=== PATIENT | female | born 1985 | race Hispanic/Latino ===

== ENCOUNTER 2019-05-11 21:06 | Emergency (ER) | payer OTHER ==
[2019-05-11 21:33] LABS: BASOPHILS % (AUTO) 1.3 % (0.0-5.0); EOSINOPHILS % (AUTO) 1.6 % (0.0-8.0); HEMATOCRIT 38.2 % (36-48); LYMPHOCYTES % (AUTO) 29.5 % (21.0-51.0); MEAN CORPUSCULAR HEMOGLOBIN 29.3 pg (27.0-33.0); MEAN CORPUSCULAR HGB CONC 33.7 g/dL (32.0-36.0); MEAN CORPUSCULAR VOLUME 86.8 fL (79-99); MONOCYTES % (AUTO) 5.8 % (3.0-13.0); NEUTROPHILS % (AUTO) 61.8 % (40.0-77.0); PLATELET COUNT (AUTO) 281 K/uL (130-400); RED CELL DISTRIBUTION WIDTH 13.5 % (11.0-15.5); WHITE BLOOD COUNT (AUTO) 9.8 K/uL (4.8-10.8)
[2019-05-11 21:35] LABS: APPEARANCE,URINE CLOUDY (CLEAR); BILIRUBIN,URINE NEGATIVE (NEGATIVE); COLOR,URINE YELLOW (YELLOW); GLUCOSE, URINE (UA) NEGATIVE (NEGATIVE); KETONES,URINE NEGATIVE (NEGATIVE); LEUKOCYTE ESTERASE ,URINE NEGATIVE (NEGATIVE); NITRATE,URINE NEGATIVE (NEGATIVE); OCCULT BLOOD,URINE NEGATIVE (NEGATIVE); PH,URINE 5.5 (5.0-8.0); PROTEIN,URINE NEGATIVE (NEGATIVE); UROBILINOGEN,URINE 0.2 mg/dL (0.2-1.0)
[2019-05-11] MEDS ORDERED: ONDANSETRON HCL 4 MG/2 ML VIAL ONE (21:39)
[2019-05-11 21:40] LABS: HCG,QUAL RESULT NEGATIVE (NEGATIVE)
[2019-05-11] MEDS ORDERED: FAMOTIDINE/PF 20 MG/2 ML VIAL IV ONE (21:40)
[2019-05-11] MEDS ORDERED: MORPHINE SULFATE 4 MG/1ML SYG ONE ×2 (21:40→23:52)
[2019-05-11] MEDS ORDERED: SODIUM CHLORIDE 0.9% 1000ML 1,000 ML IV ONE (21:41)
[2019-05-11 21:43] LABS: BACTERIA,URINE Few /HPF (None Seen); RBC,URINE 0-1 /HPF (0-1)
[2019-05-11 21:44] LABS: SQUAMOUS EPITHELIAL CELL,UR Moderate /HPF (0-2)
[2019-05-11 21:57] LABS: CREATININE 0.7 mg/dL (0.5-1.5); POTASSIUM 4.1 mmol/L (3.5-5.1)
[2019-05-11 22:01] LABS: ALBUMIN 3.8 g/dL (3.5-5.0); BILIRUBIN,TOTAL 0.2 mg/dL (0.2-1.0); TOTAL PROTEIN, SERUM 8.2 g/dL (6.0-8.3)
[2019-05-11] MEDS ORDERED: IOHEXOL-350 75 ML VIAL IV ONE (22:03)
[2019-05-11] MEDS ORDERED: MAG HYDROX/AL HYDROX/SIMETH ES 30 ML SUSP UDCUP ONE (23:59)
[2019-05-11] MEDS ORDERED: LIDOCAINE HCL 2% VISCOUS 15 ML UDCUP ONE (23:59)
[2019-05-13] MEDS ORDERED: CAPT25TA3 PO (03:08)
== END 2019-05-12 00:22 | disposition home or self-care (01) ==
LOC: EDH 21:06
DX: K52.9 Noninfective gastroenteritis and colitis, unspecified (principal)
CPT/HCPCS: 36415; 74177; 80053; 81001; 81025; 83605; 83690; 85025; 93005; 96374; 96375; 96376; 99285; J2270 ×2; J2405; J3490; J7030; Q9967

== ENCOUNTER 2019-05-12 04:09 | Emergency (ER) | payer OTHER ==
[2019-05-12] MEDS ORDERED: INSULIN HUMULIN R 100 UNIT/ML 3ML ONE (04:56)
[2019-05-12 04:58] LABS: BASOPHILS % (AUTO) 1.3 % (0.0-5.0); HEMATOCRIT 37.6 % (36-48); LYMPHOCYTES % (AUTO) 27.2 % (21.0-51.0); MEAN CORPUSCULAR HEMOGLOBIN 28.3 pg (27.0-33.0); MEAN CORPUSCULAR HGB CONC 32.6 g/dL (32.0-36.0); MEAN CORPUSCULAR VOLUME 86.8 fL (79-99); NEUTROPHILS % (AUTO) 63.5 % (40.0-77.0); PLATELET COUNT (AUTO) 270 K/uL (130-400); RED BLOOD CELL COUNT(AUTO) 4.33 MIL/uL (4.00-5.50); RED CELL DISTRIBUTION WIDTH 13.8 % (11.0-15.5); WHITE BLOOD COUNT (AUTO) 8.5 K/uL (4.8-10.8)
[2019-05-12 05:01] LABS: APPEARANCE,URINE Clear (CLEAR); BILIRUBIN,URINE Negative (NEGATIVE); COLOR,URINE Yellow (YELLOW); GLUCOSE, URINE (UA) Negative (NEGATIVE); KETONES,URINE Negative (NEGATIVE); LEUKOCYTE ESTERASE ,URINE Negative (NEGATIVE); NITRATE,URINE Negative (NEGATIVE); OCCULT BLOOD,URINE Negative (NEGATIVE); PROTEIN,URINE Negative (NEGATIVE)
[2019-05-12 05:06] LABS: HCG,QUAL RESULT NEGATIVE (NEGATIVE)
[2019-05-12 05:11] LABS: CREATININE 0.5 mg/dL (0.5-1.5); POTASSIUM 5.9 mmol/L (3.5-5.1)
[2019-05-12 05:16] LABS: ALBUMIN 3.2 g/dL (3.5-5.0); BILIRUBIN,TOTAL 0.4 mg/dL (0.2-1.0); TOTAL PROTEIN, SERUM 7.2 g/dL (6.0-8.3)
[2019-05-12] MEDS ORDERED: ONDANSETRON HCL 4 MG/2 ML VIAL ONE (05:31)
[2019-05-12] MEDS ORDERED: KETOROLAC TROMETHAMINE 30MG/ML ONE (05:31)
[2019-05-12] MEDS ORDERED: SODIUM CHLORIDE 0.9% 1000ML 1,000 ML IV ONE (05:32)
[2019-05-13] MEDS ORDERED: CAPT25TA3 PO (03:08)
== END 2019-05-12 07:11 | disposition home or self-care (01) ==
LOC: EDH 04:09
DX: K52.9 Noninfective gastroenteritis and colitis, unspecified (principal); R11.2 Nausea with vomiting, unspecified
CPT/HCPCS: 36415; 80053; 81003; 81025; 82550; 83690; 84132; 84484; 85025; 93005; 96365; 96375; 99285; J1815; J1885; J2405; J7030

== ENCOUNTER 2019-05-12 22:42 | Observation (INO) | payer OTHER ==
[2019-05-12] MEDS ORDERED: ONDANSETRON ODT 4 MG TAB ONE (23:27)
[2019-05-12 23:33] LABS: APPEARANCE,URINE CLEAR (CLEAR); BILIRUBIN,URINE NEGATIVE (NEGATIVE); COLOR,URINE YELLOW (YELLOW); GLUCOSE, URINE (UA) NEGATIVE (NEGATIVE); KETONES,URINE NEGATIVE (NEGATIVE); LEUKOCYTE ESTERASE ,URINE NEGATIVE (NEGATIVE); NITRATE,URINE NEGATIVE (NEGATIVE); OCCULT BLOOD,URINE NEGATIVE (NEGATIVE); PROTEIN,URINE NEGATIVE (NEGATIVE); UROBILINOGEN,URINE 0.2 mg/dL (0.2-1.0)
[2019-05-12 23:35] LABS: HCG,QUAL RESULT NEGATIVE (NEGATIVE)
[2019-05-13] MEDS ORDERED: HYDROCODONE/ACETAMINOPHEN 10/325 MG TAB ONE (00:09)
[2019-05-13] MEDS ORDERED: IOHEXOL-350 75 ML VIAL IV ONE (00:11)
[2019-05-13] MEDS ORDERED: MORPHINE SULFATE 4 MG/1ML SYG ONE (01:22)
[2019-05-13] MEDS ORDERED: ZOSYN 3.375GM+NS 50ML 50 ML IV ONE (01:22)
[2019-05-13] MEDS ORDERED: SODIUM CHLORIDE 0.9% 1000ML 1,000 ML IV ONE (01:23)
[2019-05-13 01:29] LABS: EOSINOPHILS % (AUTO) 2.3 % (0.0-8.0); HEMATOCRIT 36.2 % (36-48); LYMPHOCYTES % (AUTO) 31.8 % (21.0-51.0); MEAN CORPUSCULAR HEMOGLOBIN 29.8 pg (27.0-33.0); MEAN CORPUSCULAR HGB CONC 34.6 g/dL (32.0-36.0); MEAN CORPUSCULAR VOLUME 86.2 fL (79-99); NEUTROPHILS % (AUTO) 59.9 % (40.0-77.0); PLATELET COUNT (AUTO) 239 K/uL (130-400); RED BLOOD CELL COUNT(AUTO) 4.19 MIL/uL (4.00-5.50); RED CELL DISTRIBUTION WIDTH 13.6 % (11.0-15.5); WHITE BLOOD COUNT (AUTO) 6.4 K/uL (4.8-10.8)
[2019-05-13 01:33] LABS: CREATININE 0.7 mg/dL (0.5-1.5); POTASSIUM 3.8 mmol/L (3.5-5.1)
[2019-05-13 01:37] LABS: ALBUMIN 3.4 g/dL (3.5-5.0); BILIRUBIN,TOTAL 0.4 mg/dL (0.2-1.0); TOTAL PROTEIN, SERUM 7.5 g/dL (6.0-8.3)
[2019-05-13 02:40] VITALS: BP 117/79
--- NOTE | 2019-05-13 02:40 | NUR ---
ADMISSION. PT TRANSFERRED VIA WHEELCHAIR FROM ER INTO ROOM 405. PT AWAKE, ALERT AND RESPONSIVE, TAJIK SPEAKING ONLY, WITH SPOUSE AT BEDSIDE. STATED PAIN LEVEL OF 2/10 BUT TOLERABLE, PAIN MEDICATION GIVEN PREVIOUSLY IN ER. VITAL SIGNS WNL FOR PT. PT AND SPOUSE UPDATED ON P.O.C, ORIENTED TO ROOM, CALL LOPEZ LEFT WITHIN REACH, BED IN LOWEST POSITION. Addendum: 05/13/19 at 0304 by DAYNE MIRZA RN Amended: Links added.
[2019-05-13] MEDS ORDERED: CAPT25TA3 PO (03:08)
[2019-05-13] MEDS ORDERED: ONDANSETRON HCL 4 MG/2 ML VIAL IVP PRN (03:45)
[2019-05-13] MEDS ORDERED: PHARMACY COMMUNICATION MISC SCH (04:00)
[2019-05-13] MEDS: ZOSYN 3.375GM+NS 50ML 50 ML IV SCH ×3 (04:00→19:38)
[2019-05-13] MEDS: LACTATED RINGERS 1000ML 1,000 ML IV SCH ×3 (04:17→19:39)
[2019-05-13] MEDS: MORPHINE SULFATE 2 MG/ML 1ML SYG IVP PRN ×2 (04:18→07:31)
[2019-05-13 07:30] VITALS: BP 99/60
[2019-05-13] MEDS: KETOROLAC TROMETHAMINE 30MG/ML IV PRN ×2 (09:32→17:21)
[2019-05-13 09:45] LABS: HEMATOCRIT 34.9 % (36-48); RED BLOOD CELL COUNT(AUTO) 4.01 MIL/uL (4.00-5.50); WHITE BLOOD COUNT (AUTO) 5.5 K/uL (4.8-10.8)
[2019-05-13 09:46] LABS: EOSINOPHILS % (AUTO) 2.8 % (0.0-8.0); LYMPHOCYTES % (AUTO) 41.6 % (21.0-51.0); MEAN CORPUSCULAR HEMOGLOBIN 29.3 pg (27.0-33.0); MEAN CORPUSCULAR HGB CONC 33.7 g/dL (32.0-36.0); MEAN CORPUSCULAR VOLUME 86.9 fL (79-99); MONOCYTES % (AUTO) 4.8 % (3.0-13.0); NEUTROPHILS % (AUTO) 49.8 % (40.0-77.0); PLATELET COUNT (AUTO) 229 K/uL (130-400); RED CELL DISTRIBUTION WIDTH 13.5 % (11.0-15.5)
[2019-05-13 11:00] VITALS: BP 100/59
[2019-05-13 16:00] VITALS: BP 111/43
--- NOTE | 2019-05-13 18:13 | NUR ---
cm note met with patient and spouse, pt resides at home with spouse, independent with adls and ambulation. no dme no services. dc plan is back to [place] setting [place]. [facility] has already spoken to [employer]. and will try to get medicaid. gets meds at [facility] or [facility] or [facility]. no dc needs Addendum: 05/13/19 at 1815 by WILLIAN SMILEY CM Amended: Links added.
[2019-05-13 19:09] VITALS: BP 99/58
[2019-05-13 23:19] VITALS: BP 95/48
--- NOTE | 2019-05-13 23:55 | NUR ---
ROUNDS PATIENT AWAKE AND ALERT. AMBULATING IN HALLWAY WITH SPOUSE AT SIDE. NO COMPLAINTS OF PAIN VOICED AT THIS TIME. VITALS STABLE. RESP EVEN AND UNLABORED. ON ROOM AIR. TOLERATING IVF WELL. NO NAUSEA OR VOMITING NOTED. NO DISTRESS NOTED. WILL CONTINUE TO BE OBSERVED. Addendum: 05/13/19 at 6567 by KATIE DOWNS RN RN Amended: Links added.
[2019-05-14 03:33] VITALS: BP 105/66
[2019-05-14] MEDS: LACTATED RINGERS 1000ML 1,000 ML IV SCH (03:36)
[2019-05-14] MEDS: ZOSYN 3.375GM+NS 50ML 50 ML IV SCH (03:36)
[2019-05-14 05:26] LABS: BASOPHILS % (AUTO) 1.1 % (0.0-5.0); EOSINOPHILS % (AUTO) 2.9 % (0.0-8.0); HEMATOCRIT 35.7 % (36-48); LYMPHOCYTES % (AUTO) 28.6 % (21.0-51.0); MEAN CORPUSCULAR HEMOGLOBIN 28.9 pg (27.0-33.0); MEAN CORPUSCULAR HGB CONC 33.5 g/dL (32.0-36.0); NEUTROPHILS % (AUTO) 61.4 % (40.0-77.0); PLATELET COUNT (AUTO) 258 K/uL (130-400); RED BLOOD CELL COUNT(AUTO) 4.14 MIL/uL (4.00-5.50); RED CELL DISTRIBUTION WIDTH 13.5 % (11.0-15.5); WHITE BLOOD COUNT (AUTO) 6.7 K/uL (4.8-10.8)
[2019-05-14 07:44] VITALS: BP 100/61
[2019-05-14 11:37] VITALS: BP 112/54
== END 2019-05-14 13:48 | disposition home or self-care (01) ==
LOC: EDH 22:42 → EDHIP 05-13 01:56 → 4BH 05-13 02:27
PROVIDERS: ADMIT Surgery; ATTEND Surgery
DX: R10.9 Unspecified abdominal pain (principal); R19.7 Diarrhea, unspecified; Z79.899 Other long term (current) drug therapy
CPT/HCPCS: 36415 ×2; 74177; 76856; 80053; 81025; 83690; 85025 ×3; 96361; 96365; 96366 ×2; 96375; 96376 ×2; 99284; G0378 ×36; J1885 ×2; J2270; J2405; J2543 ×4; J7030; J7120 ×3; Q9967

== ENCOUNTER 2019-05-15 21:32 | Inpatient (IN) | payer OTHER ==
[~2019-05-15] VITALS: Ht 162.6 cm; Wt 110.2 kg
[~2019-05-15 21:32] MED LIST: CAPT25TA3 PO
[2019-05-15] MEDS ORDERED: ONDANSETRON HCL 4 MG/2 ML VIAL ONE (22:23)
[2019-05-15] MEDS ORDERED: SODIUM CHLORIDE 0.9% 1000ML 1,000 ML IV ONE (22:23)
[2019-05-15] MEDS ORDERED: MORPHINE SULFATE 4 MG/1ML SYG ONE ×2 (22:23→23:00)
[2019-05-15 22:45] LABS: APPEARANCE,URINE Clear (CLEAR); BASOPHILS % (AUTO) 1.1 % (0.0-5.0); BILIRUBIN,URINE Negative (NEGATIVE); COLOR,URINE Yellow (YELLOW); EOSINOPHILS % (AUTO) 1.6 % (0.0-8.0); GLUCOSE, URINE (UA) Negative (NEGATIVE); KETONES,URINE Negative (NEGATIVE); LEUKOCYTE ESTERASE ,URINE Negative (NEGATIVE); LYMPHOCYTES % (AUTO) 26.7 % (21.0-51.0); MEAN CORPUSCULAR HEMOGLOBIN 29.1 pg (27.0-33.0); MEAN CORPUSCULAR HGB CONC 33.7 g/dL (32.0-36.0); MEAN CORPUSCULAR VOLUME 86.2 fL (79-99); MONOCYTES % (AUTO) 5.3 % (3.0-13.0); NEUTROPHILS % (AUTO) 65.3 % (40.0-77.0); NITRATE,URINE Negative (NEGATIVE); OCCULT BLOOD,URINE Negative (NEGATIVE); PLATELET COUNT (AUTO) 283 K/uL (130-400); PROTEIN,URINE Negative (NEGATIVE); RED BLOOD CELL COUNT(AUTO) 4.87 MIL/uL (4.00-5.50); RED CELL DISTRIBUTION WIDTH 13.6 % (11.0-15.5); UROBILINOGEN,URINE 0.2 mg/dL (0.2-1.0); WHITE BLOOD COUNT (AUTO) 10.5 K/uL (4.8-10.8)
[2019-05-15 22:52] LABS: HCG,QUAL RESULT NEGATIVE (NEGATIVE)
[2019-05-15 22:56] LABS: CREATININE 0.8 mg/dL (0.5-1.5); POTASSIUM 4.2 mmol/L (3.5-5.1)
[2019-05-15 23:00] LABS: ALBUMIN 3.7 g/dL (3.5-5.0); BILIRUBIN,TOTAL 0.2 mg/dL (0.2-1.0); TOTAL PROTEIN, SERUM 8.5 g/dL (6.0-8.3)
[2019-05-16] VITALS (23 sets, daily range): BP systolic 92–136; BP diastolic 55–77
[2019-05-16] MEDS ORDERED: MORPHINE SULFATE 4 MG/1ML SYG ONE ×2 (01:48→05:50)
[2019-05-16] MEDS ORDERED: ZOSYN 3.375GM+NS 50ML 50 ML IV ONE (03:53)
[2019-05-16] MEDS ORDERED: LACTATED RINGERS 1000ML 1,000 ML IV ONE (03:54)
[2019-05-16] MEDS ORDERED: ONDANSETRON HCL 4 MG/2 ML VIAL IVP PRN (05:45)
[2019-05-16] MEDS: MORPHINE SULFATE 2 MG/ML 1ML SYG IVP PRN ×2 (08:28→19:36)
[2019-05-16] MEDS: LACTATED RINGERS 1000ML 1,000 ML IV SCH ×5 (08:35→21:45)
[2019-05-16] MEDS ORDERED: ZOSYN 3.375GM+NS 50ML 50 ML IV SCH (09:00)
[2019-05-16] MEDS ORDERED: MIDAZOLAM HCL 1 MG/ML 2ML VIAL ONE (11:35)
[2019-05-16] MEDS ORDERED: DEXAMETHASONE SOD PHOSPHATE 10MG/ML 1ML VIAL ONE (11:37)
[2019-05-16] MEDS ORDERED: LIDOCAINE PF 2% 5ML ABBOJECT ONE (11:37)
[2019-05-16] MEDS ORDERED: SUCCINYLCHOLINE 200MG/10ML SYR ONE (11:37)
[2019-05-16] MEDS ORDERED: ROCURONIUM 10MG/1ML SYR 10 MG/ML ML ONE (11:38)
[2019-05-16] MEDS ORDERED: NEOSTIGMINE 5MG/5ML SYR IV ONE (11:38)
[2019-05-16] MEDS ORDERED: GLYCOPYRROLATE 1 MG/5 ML SYRINGE ONE (11:38)
[2019-05-16] MEDS ORDERED: FENTANYL CITRATE PF 50 MCG/1 ML 2ML VIAL ONE ×3 (11:39→12:50)
[2019-05-16] MEDS ORDERED: PROPOFOL 10 MG/ML 20ML VIAL IV ONE (11:40)
--- NOTE | 2019-05-16 11:48 | NUR ---
DCP CM met with pt discussed dc plans. Pt is independent prior to admission, lives at home with spouse. Denies any equipments/services. Pt feels safe to go back home, still drives, spouse able to assist with transportation and needs as necessary. Pt is a self pay, [facility] assisting, pt states he goes to [facility] for pcp follow up, given community resources. DC plan to home once stable. CM to cont to follow up. Addendum: 05/16/19 at 1150 by CASIE FERNANDEZ LVN CM Amended: Links added.
[2019-05-16] MEDS ORDERED: ONDANSETRON HCL 4 MG/2 ML VIAL ONE (12:13)
[2019-05-16] MEDS ORDERED: MEPERIDINE-PF 25 MG/ML SYG ONE ×2 (12:35→12:43)
[2019-05-16] MEDS: ZOSYN 3.375GM+NS 50ML 50 ML IV SCH ×2 (13:00→19:31)
[2019-05-16] MEDS: ACETAMINOPHEN-CODEINE 300/30MG TAB PO PRN (17:33)
--- NOTE | 2019-05-16 18:15 | NUR ---
RD Notification Pt s/p Appendectomy. Pt with some nausea. Pt SO reports fair appetite (50-75%). Pt with fatigue at time of visit. RD to continue to monitor PO intake and nutritional labs. Pt Obesity Class III ( BMI 41.7). No immediate nutrition concerns at this time. RD to follow up. Addendum: 05/16/19 at [address] RD Amended: Links added.
[2019-05-17] VITALS: BP 112/67
[2019-05-17] MEDS: MORPHINE SULFATE 2 MG/ML 1ML SYG IVP PRN (00:15)
[2019-05-17] MEDS: LACTATED RINGERS 1000ML 1,000 ML IV SCH ×4 (01:12→15:09)
[2019-05-17 04:00] VITALS: BP 97/71
[2019-05-17] MEDS: ZOSYN 3.375GM+NS 50ML 50 ML IV SCH ×2 (05:19→12:54)
[2019-05-17 08:00] VITALS: BP 116/68
[2019-05-17] MEDS: ACETAMINOPHEN-CODEINE 300/30MG TAB PO PRN (09:50)
[2019-05-17 11:49] VITALS: BP 119/75
[2019-05-17] MEDS ORDERED: ACET1TAB12 PO (12:06)
== END 2019-05-17 15:30 | disposition home or self-care (01) | DRG 343 ==
LOC: EDH 21:32 → EDHIP 21:33 → OBSVTOIN 21:33 → 4CH 05-16 05:30
PROVIDERS: ADMIT Surgery; ATTEND Surgery
PROC: 0DTJ0ZZ Resection of Appendix, Open Approach (ICD-10-PCS; principal; 2019-05-16 11:00)
DX: K35.80 Unspecified acute appendicitis (principal); A08.4 Viral intestinal infection, unspecified
CPT/HCPCS: 36415; 80053; 81003; 81025; 83690; 85025; 88304; G0378; J0330; J1100; J2001; J2175; J2250; J2270; J2405; J2543; J2704; J2710; J3010; J3490; J7030; J7120

== ENCOUNTER 2019-07-05 07:20 | Observation (INO) | payer OTHER ==
[~2019-07-05] VITALS: Ht 162.6 cm; Wt 101.1 kg
[~2019-07-05 07:20] MED LIST changes: +ACET1TAB12 PO
[2019-07-05 08:27] LABS: APPEARANCE,URINE Clear (CLEAR); BILIRUBIN,URINE Negative (NEGATIVE); COLOR,URINE Yellow (YELLOW); GLUCOSE, URINE (UA) Negative (NEGATIVE); KETONES,URINE Negative (NEGATIVE); LEUKOCYTE ESTERASE ,URINE Negative (NEGATIVE); NITRATE,URINE Negative (NEGATIVE); OCCULT BLOOD,URINE Negative (NEGATIVE); PH,URINE 5.5 (5.0-8.0); PROTEIN,URINE Negative (NEGATIVE); UROBILINOGEN,URINE 0.2 mg/dL (0.2-1.0)
[2019-07-05 08:32] LABS: BASOPHILS % (AUTO) 1.2 % (0.0-5.0); EOSINOPHILS % (AUTO) 2.9 % (0.0-8.0); HEMATOCRIT 37.2 % (36-48); LYMPHOCYTES % (AUTO) 35.4 % (21.0-51.0); MEAN CORPUSCULAR HEMOGLOBIN 28.9 pg (27.0-33.0); MEAN CORPUSCULAR VOLUME 84.8 fL (79-99); MONOCYTES % (AUTO) 5.7 % (3.0-13.0); NEUTROPHILS % (AUTO) 54.8 % (40.0-77.0); PLATELET COUNT (AUTO) 269 K/uL (130-400); RED BLOOD CELL COUNT(AUTO) 4.38 MIL/uL (4.00-5.50); RED CELL DISTRIBUTION WIDTH 13.7 % (11.0-15.5); WHITE BLOOD COUNT (AUTO) 7.7 K/uL (4.8-10.8)
[2019-07-05 08:43] LABS: CREATININE 0.6 mg/dL (0.5-1.5); POTASSIUM 3.8 mmol/L (3.5-5.1)
[2019-07-05 08:45] LABS: AMPHET/METH SCREEN,URINE NEGATIVE (NEGATIVE); BARBITURATE SCREEN, URINE NEGATIVE (NEGATIVE); BENZODIAZEPINES SCREEN,URINE NEGATIVE (NEGATIVE); CANNABINOID SCREEN,URINE NEGATIVE (NEGATIVE); COCAINE SCREEN,URINE NEGATIVE (NEGATIVE); OPIATE SCREEN,URINE NEGATIVE (NEGATIVE); PHENCYCLIDINE SCREEN,URINE NEGATIVE (NEGATIVE)
[2019-07-05 08:47] LABS: ALBUMIN 3.4 g/dL (3.5-5.0); BILIRUBIN,DIRECT 0.1 mg/dL (0.0-0.3); BILIRUBIN,TOTAL 0.3 mg/dL (0.2-1.0); TOTAL PROTEIN, SERUM 7.7 g/dL (6.0-8.3)
[2019-07-05] MEDS ORDERED: DiphenhydrAMINE HCL 50 MG/ML VIAL ONE (12:24)
[2019-07-05] MEDS ORDERED: ACETAMINOPHEN EXTRA STRENGTH 500 MG TABLET ONE (12:25)
[2019-07-05] MEDS ORDERED: ONDANSETRON HCL 4 MG/2 ML VIAL IV PRN (13:15)
[2019-07-05] MEDS ORDERED: LACTULOSE 20 GM/30 ML UDCUP PO PRN (13:15)
[2019-07-05] MEDS: CLOPIDOGREL BISULFATE 75 MG TAB PO SCH (13:15)
[2019-07-05] MEDS ORDERED: HYDRALAZINE HCL 20 MG/ML VIAL IV PRN (13:15)
[2019-07-05] MEDS ORDERED: ACETAMINOPHEN 325 MG TAB PO PRN ×2 (13:15)
[2019-07-05] MEDS ORDERED: GADODIAMIDE 10 MMOL/20 ML VIAL IV ONE (13:24)
[2019-07-05 13:33] LABS: HEMOGLOBIN A1C 5.5 % (4.0-6.0)
[2019-07-05] MEDS ORDERED: CLOPIDOGREL BISULFATE 75 MG TAB ONE (14:05)
[2019-07-05] MEDS ORDERED: ENOXAPARIN SODIUM 40 MG/0.4 ML SYRINGE SQ ONE (14:06)
[2019-07-05 17:04] VITALS: BP 108/57
[2019-07-05 19:19] VITALS: BP 109/66
[2019-07-05] MEDS: FAMOTIDINE/PF 20 MG/2 ML VIAL IV SCH (20:59)
[2019-07-05] MEDS ORDERED: ATORVASTATIN CALCIUM 40 MG TABLET PO SCH (21:00)
--- NOTE | 2019-07-05 22:55 | NUR ---
ROUND DR BRAY AT THE BEDSIDE. UPDATED ON PATIENT CONDITION. SPOKE WITH PATIENT REGARDING MOST RECENT RESULTS. PATIENT ACKNOWLEDGED INFORMATION.
[2019-07-05 23:49] VITALS: BP 111/67
[2019-07-06 04:01] VITALS: BP 97/44
[2019-07-06 05:10] LABS: CHOLESTEROL 181 mg/dL (<200); LDL DIRECT 104 mg/dL (0-99); TRIGLYCERIDES 80 mg/dL (30-200)
[2019-07-06 05:22] LABS: HDL CHOLESTEROL 54 mg/dL (35-85)
[2019-07-06 07:40] VITALS: BP 100/67
[2019-07-06] MEDS ORDERED: ENOXAPARIN SODIUM 40 MG/0.4 ML SYRINGE SQ SCH (09:00)
[2019-07-06] MEDS ORDERED: ASPIRIN 325 MG TABLET PO SCH (09:00)
[2019-07-06] MEDS: FAMOTIDINE/PF 20 MG/2 ML VIAL IV SCH (09:42)
[2019-07-06] MEDS: CLOPIDOGREL BISULFATE 75 MG TAB PO SCH (09:42)
[2019-07-06 11:45] VITALS: BP 103/63
[2019-07-06] MEDS ORDERED: ASPIRIN 81MG TAB.CHEW PO SCH (15:30)
[2019-07-06 15:33] VITALS: BP 107/60
[2019-07-06] MEDS ORDERED: ASPI-1005 PO (16:04)
[2019-07-06] MEDS ORDERED: ATOR40TA69 PO (16:04)
--- NOTE | 2019-07-06 16:45 | NUR ---
Dr. Chuck larson
--- NOTE | 2019-07-06 16:59 | NUR ---
Patient discharged in stable condition. Patient given discharge instruction on left side hemiparesis, cholesterol, new medications, the importance of taking blood pressure and diet. Patient given appt for [facility] in [place], [place] for 07/10/19 @ 1330. Patient verbalized understanding to all teaching. IV removed from left AC and Telemonitor removed. Pt tolerated well. No other questions voiced.
[2019-07-07] MEDS ORDERED: ASPIRIN 81MG TAB.CHEW PO SCH (09:00)
== END 2019-07-06 17:10 | disposition home or self-care (01) ==
LOC: EDH 07:20 → EDHIP 07:21 → 2AH 15:54
PROVIDERS: ADMIT Internal Medicine; ATTEND Internal Medicine
DX: G81.94 Hemiplegia, unspecified affecting left nondominant side (principal); I10 Essential (primary) hypertension; Z82.49 Family history of ischemic heart disease and other diseases of the circulatory system; Z83.3 Family history of diabetes mellitus; Z90.49 Acquired absence of other specified parts of digestive tract; Z79.899 Other long term (current) drug therapy
CPT/HCPCS: 36415 ×2; 70450; 70553; 80048; 80061; 80076; 80305; 81003; 81025; 82550; 83036; 83605; 83690; 84443; 84484; 85025; 93005; 93880; 96372; 96374; 96376; 99284; A9579; C8929; G0378 ×27; J1200; J1650 ×2; J3490 ×2

== ENCOUNTER 2019-09-26 23:30 | Emergency (ER) | payer OTHER ==
[~2019-09-26 23:30] MED LIST changes: +ASPI-1005 PO; +ATOR40TA69 PO
[2019-09-27] MEDS ORDERED: KETOROLAC TROMETHAMINE 30MG/ML ONE (00:03)
[2019-09-27 00:20] LABS: EOSINOPHILS % (AUTO) 4.7 % (0.0-8.0); HEMATOCRIT 38.3 % (36-48); LYMPHOCYTES % (AUTO) 29.1 % (21.0-51.0); MEAN CORPUSCULAR HEMOGLOBIN 28.4 pg (27.0-33.0); MEAN CORPUSCULAR HGB CONC 33.2 g/dL (32.0-36.0); MEAN CORPUSCULAR VOLUME 85.5 fL (79-99); NEUTROPHILS % (AUTO) 60.2 % (40.0-77.0); PLATELET COUNT (AUTO) 281 K/uL (130-400); RED BLOOD CELL COUNT(AUTO) 4.48 MIL/uL (4.00-5.50); WHITE BLOOD COUNT (AUTO) 11.3 K/uL (4.8-10.8)
[2019-09-27 00:23] LABS: CREATININE 0.6 mg/dL (0.5-1.5); POTASSIUM 3.6 mmol/L (3.5-5.1)
[2019-09-27] MEDS ORDERED: SODIUM CHLORIDE 0.9% 1000ML 1,000 ML IV ONE (00:40)
[2019-09-27] MEDS ORDERED: IOHEXOL 350 MG/ML 100ML INFUS..BTL IV ONE (00:46)
== END 2019-09-27 04:47 | disposition home or self-care (01) ==
LOC: EDH 23:30
DX: G44.59 Other complicated headache syndrome (principal); G43.409 Hemiplegic migraine, not intractable, without status migrainosus; I10 Essential (primary) hypertension; E78.5 Hyperlipidemia, unspecified; Z90.49 Acquired absence of other specified parts of digestive tract; Z98.890 Other specified postprocedural states; Z79.82 Long term (current) use of aspirin
CPT/HCPCS: 36415; 70450; 70496; 70498; 80048; 81025; 84484; 85025; 93005; 96361; 96374; 99285; J1885; J7030; Q9967

== ENCOUNTER 2019-10-04 03:43 | Emergency (ER) | payer OTHER ==
[2019-10-04] MEDS ORDERED: ORPHENADRINE CITRATE 30 MG/ML ML ONE (04:25)
[2019-10-04] MEDS ORDERED: HYDROCODONE/ACETAMINOPHEN 5/325 MG TAB ONE (04:26)
[2019-10-04] MEDS ORDERED: KETOROLAC TROMETHAMINE 30MG/ML ONE (04:26)
[2019-10-04] MEDS ORDERED: LIDOCAINE 5% TOPICAL PATCH TP ONE (04:26)
== END 2019-10-04 05:15 | disposition home or self-care (01) ==
LOC: EDH 03:43
DX: S86.912A Strain of unspecified muscle(s) and tendon(s) at lower leg level, left leg, initial encounter (principal); I10 Essential (primary) hypertension; E78.5 Hyperlipidemia, unspecified; Z90.49 Acquired absence of other specified parts of digestive tract; Z98.890 Other specified postprocedural states; X58.XXXA Exposure to other specified factors, initial encounter; Y93.89 Activity, other specified; Y92.89 Other specified places as the place of occurrence of the external cause; Y99.8 Other external cause status
CPT/HCPCS: 96372 ×2; 99284; J1885; J2360

== ENCOUNTER 2019-10-09 07:15 | Emergency (ER) | payer SELFPAY ==
[2019-10-09 07:41] LABS: BASOPHILS % (AUTO) 0.9 % (0.0-5.0); EOSINOPHILS % (AUTO) 3.8 % (0.0-8.0); HEMATOCRIT 35.2 % (36-48); LYMPHOCYTES % (AUTO) 28.9 % (21.0-51.0); MEAN CORPUSCULAR HEMOGLOBIN 29.3 pg (27.0-33.0); MEAN CORPUSCULAR HGB CONC 33.7 g/dL (32.0-36.0); MEAN CORPUSCULAR VOLUME 86.9 fL (79-99); MONOCYTES % (AUTO) 5.5 % (3.0-13.0); NEUTROPHILS % (AUTO) 60.9 % (40.0-77.0); PLATELET COUNT (AUTO) 267 K/uL (130-400); RED BLOOD CELL COUNT(AUTO) 4.05 MIL/uL (4.00-5.50); RED CELL DISTRIBUTION WIDTH 13.6 % (11.0-15.5); WHITE BLOOD COUNT (AUTO) 6.7 K/uL (4.8-10.8)
[2019-10-09 07:49] LABS: CREATININE 0.7 mg/dL (0.5-1.5); POTASSIUM 4.1 mmol/L (3.5-5.1)
[2019-10-09] MEDS ORDERED: ONDANSETRON HCL 4 MG/2 ML VIAL ONE (07:52)
[2019-10-09] MEDS ORDERED: SODIUM CHLORIDE 0.9% 1000ML 1,000 ML IV ONE (07:52)
[2019-10-09] MEDS ORDERED: PROCHLORPERAZINE EDISYLATE 10 MG/2 ML VIAL ONE (07:52)
[2019-10-09 09:20] LABS: AMPHET/METH SCREEN,URINE NEGATIVE (NEGATIVE); BARBITURATE SCREEN, URINE NEGATIVE (NEGATIVE); BENZODIAZEPINES SCREEN,URINE NEGATIVE (NEGATIVE); CANNABINOID SCREEN,URINE NEGATIVE (NEGATIVE); COCAINE SCREEN,URINE NEGATIVE (NEGATIVE); OPIATE SCREEN,URINE NEGATIVE (NEGATIVE); PHENCYCLIDINE SCREEN,URINE NEGATIVE (NEGATIVE)
[2019-10-09 09:23] LABS: HCG,QUAL RESULT NEGATIVE (NEGATIVE)
== END 2019-10-09 10:11 | disposition home or self-care (01) ==
LOC: EDH 07:15
DX: R51 Headache (principal); R11.2 Nausea with vomiting, unspecified; H53.8 Other visual disturbances; E78.5 Hyperlipidemia, unspecified; I10 Essential (primary) hypertension; Z90.49 Acquired absence of other specified parts of digestive tract
CPT/HCPCS: 36415; 70450; 80048; 80305; 81025; 85025; 96361; 96374; 96375; 99285; J0780; J2405; J7030